=== PATIENT | male | born 1995 | race Caucasian/White ===

== ENCOUNTER → 2017-05-02 | Day surgery (SDC) | payer BC ==
--- NOTE | 2017-05-02 16:33 | RADIOLOGY REPORT (SQ) ---
EXAM DESCRIPTION: ARTHRO SHOULDER INJECTION; FLUORO/NEEDLE PLACEMENT COMPLETED DATE/TIME: 05/02/2017 2:39 pm REASON FOR STUDY: RIGHT SHOULDER PAIN,UNSPECIFIED (M25.511) M25.511 PAIN IN RIGHT SHOULDER COMPARISON: None. FLUOROSCOPY TIME: 15 seconds 2 radiographic images saved to PACS. LIMITATIONS: None. PROCEDURE: Procedure, risks, benefits and alternatives explained to patient who then gave written co nsent. The posterior right shoulder was marked and a time out was called for correct procedure verifi cation. Posterior entry site marked using fluoroscopic guidance. Shoulder prepped and draped using sterile technique. Local anesthesia achieved using 6 mL of 1% lidocaine injection. 22 gauge spinal needle introduced into the joint space under direct fluoroscopic visualization. Non-ionic contrast in stilled to confirm intra-articular position. Dilute gadolinium solution then injected. Needle remove d and entry site covered with sterile bandage. No immediate complications noted. TECHNIQUE: Digital images acquired during fluoroscopy and stored on PACS. Patient immediately take n to the MR suite for additional imaging. INJECTION LOCATION: Right posterior glenohumeral joint CONTRAST TYPE AND AMOUNT: Intra-articular needle placement was confirmed by injecting 1 mL of Isovue- 300. This was followed by injection of 9 mL of dilute ProHance gadolinium for MR arthrogram IMPRESSION: SUCCESSFUL NEEDLE PLACEMENT AND INJECTION FOR RIGHT SHOULDER MR ARTHROGRAM USING POSTERI OR APPROACH. COMMENT: Quality ID 145: Final reports for procedures using fluoroscopy that document radiation exp osure indices, or exposure time and number of fluorographic images (if radiation exposure indices are not available) TECHNICAL DOCUMENTATION: JOB ID: [id number] [employer]- All Rights Reserved
--- NOTE | 2017-05-02 17:32 | RADIOLOGY REPORT (SQ) ---
EXAM DESCRIPTION: MRI RT UPPER JOINT WITH COMPLETED DATE/TIME: 05/02/2017 3:22 pm REASON FOR STUDY: RIGHT SHOULDER PAIN, UNSPECIFIED (M25.511) M25.511 PAIN IN RIGHT SHOULDER COMPARISON: Arthrogram same date TECHNIQUE: Right shoulder images acquired and stored on PACS. Oblique coronal, oblique sagittal, and axial imaging to include fat sensitive sequences as T1, water sensitive sequences as FST2/STIR, and contrast sensitive sequences as FST1. LIMITATIONS: None. FINDINGS: JOINT DISTENTION: Adequate distention for interpretation. Intra-articular contrast extend s into the subcoracoid recess. There is trace subacromial/subdeltoid bursal fluid without gadolinium from mild bursitis. BONE MARROW AND CORTEX: Subcortical cyst formation along the posterior right humeral head greater tub erosity on axial image 8. On sagittal image 15, there is mild flattening of the posterior right omkar ral head, question old Hill-Sachs deformity AC JOINT: Type II acromion. No significant AC joint arthropathy. GLENOHUMERAL JOINT: No subluxation or dislocation. No focal chondral defects or reactive bone changes . ROTATOR CUFF: Intact without significant tendinopathy, partial or full-thickness tears. No peritendin itis. LABRUM AND BICEPS LABRAL COMPLEX: Intra-articular long head biceps tendon is intact. Superior labral attachment intact on coronal images 8 and 9. The posterosuperior labrum is small. Intact posterior labral repair, with tacks anchoring the posterior labrum none sagittal images 5-7. No paralabral cy st. Anterior labrum grossly intact. INFERIOR LABRAL COMPLEX: Bony glenoid and labrum intact. IGHL intact without thickening or tear. No p aralabral cysts. ADJACENT SOFT TISSUES: No masses or nodes. OTHER: No other significant finding. IMPRESSION: Small amount of fluid in the subacromial/subdeltoid bursa Small subcortical cysts in the posterior right humeral head greater tuberosity Intact posterior labral repair with tiny focus of increased signal persisting in the posterosuperior labrum near the biceps tendon attachment. TECHNICAL DOCUMENTATION: JOB ID: [id number] [employer]- All Rights Reserved
== END ==
LOC: RAD 13:37
PROVIDERS: ATTEND Specialist
PROC: BP08ZZZ Plain Radiography of Right Shoulder (ICD-10-PCS; principal; 2017-05-02)
DX: M25.811 Other specified joint disorders, right shoulder (principal); M25.511 Pain in right shoulder
CPT/HCPCS: 73222; 77002; 23350; A9576

== ENCOUNTER → 2019-01-01 | Day surgery (SDC) | payer BC ==
--- NOTE | 2019-01-01 14:00 | RADIOLOGY REPORT (SQ) ---
EXAM DESCRIPTION: ARTHRO HIP INJ W/ANESTHESIA; FLUORO/NEEDLE PLACEMENT COMPLETED DATE/TIME: 01/01/2019 1:37 pm REASON FOR STUDY: M25.551 PAIN IN RIGHT HIP M25.551 PAIN IN RIGHT HIP COMPARISON: None. FLUOROSCOPY TIME: 3 seconds 1 images saved to PACS. LIMITATIONS: None. PROCEDURE: Procedure, risks, benefits and alternatives explained to patient who then gave written c onsent. The right hip was marked and a time-out was called for correct marking verification. Entry site marked using fluoroscopic guidance. Hip prepped and draped using sterile technique. Local ane sthesia achieved using 1% lidocaine injection. Hypodermic needle introduced into the joint space un ishmael direct fluoroscopic visualization. Non-ionic contrast instilled to confirm intra-articular posit ion. Dilute gadolinium solution then injected. Needle removed and entry site covered with sterile bandage. No immediate complications noted. TECHNIQUE: Digital images acquired during fluoroscopy and stored on PACS. Patient immediately take n to the MR suite for additional imaging. INJECTION LOCATION: Right hip. CONTRAST TYPE AND AMOUNT: 7 cc 1% lidocaine, 1 cc Omnipaque, 8 cc Dotarem/Saline mixture. IMPRESSION: SUCCESSFUL NEEDLE PLACEMENT AND INJECTION FOR RIGHT HIP MR ARTHROGRAM. COMMENT: Quality ID 145: Final reports for procedures using fluoroscopy that document radiation exp osure indices, or exposure time and number of fluorographic images (if radiation exposure indices are not available) TECHNICAL DOCUMENTATION: JOB ID: [id number] [employer]- All Rights Reserved Reading location - IP/workstation name: [email or web address]
--- NOTE | 2019-01-01 15:24 | RADIOLOGY REPORT (SQ) ---
EXAM DESCRIPTION: MRI RT LOWER JOINT WITH COMPLETED DATE/TIME: 01/01/2019 1:48 pm REASON FOR STUDY: M25.551 PAIN IN RIGHT HIP M25.551 PAIN IN RIGHT HIP COMPARISON: None. TECHNIQUE: Post arthrogram imaging is performed using T1 and T1 and T2 fat saturated sequences of th e pelvis and specific hip of interest. LIMITATIONS: None. FINDINGS: JOINT DISTENSION: Adequate. No loose body. BONE MARROW: Increased T2 signal consistent with edema in the posterior left femoral physis. Uncerta in significance. No other indication of AVN or fracture. FEMORAL HEAD, NECK, AND ACETABULUM: No occult fracture. No osteophytes or subchondral cysts. Normal s phericity of femoral head/neck junction. No acetabular dysplasia. No evidence of femoroacetabular imp ingement. PUBIC RAMI AND ISCHIUM: No occult fracture. SACRUM AND SAEED: SI joints normal in signal. No occult fracture. EFFUSIONS: None. LABRUM AND CARTILAGE: Tear of the anterior superior labrum series 9 image 17. Underlying cartilage i ntact. MUSCLES AND SOFT TISSUES: Adductors and piriformis normal. Abductors and greater trochanteric bursa n ormal without edema or fluid. Iliopsoas bursa without fluid. Hamstring attachments without edema or t ear. PELVIC SOFT TISSUES: No masses or adenopathy. SCIATIC NERVE: Identified without masses. OTHER: No other significant finding. IMPRESSION: 1. Anterior superior labral tear. 2. Edema in the posterior left femoral head physis of uncertain significance. Clinical correlation i s needed. TECHNICAL DOCUMENTATION: JOB ID: [id number] [employer]- All Rights Reserved Reading location - IP/workstation name: [email or web address]
== END ==
LOC: RAD 12:34
PROVIDERS: ATTEND Orthopaedic Surgery Sports Medicine
DX: M25.551 Pain in right hip (principal)
CPT/HCPCS: 73722; 77002; 27095; A9576